=== PATIENT | male | born 1955 | race Caucasian/White ===

== ENCOUNTER 2024-05-10 09:07 | Inpatient (IN) | payer OTHER ==
[~2024-05-10] VITALS: Ht 170.2 cm; Wt 76.3 kg
[2024-05-10 09:09] VITALS: BP_SYST 187; PULSE 75; RESP 18; TEMP 97.6; O2SAT 98
[2024-05-10] MEDS: MORPHINE 4 MG INJ. 4 MG/ML VIAL IVP ONE (09:38)
[2024-05-10] MEDS: ONDANSETRON HCL 4 MG/2 ML VIAL IVP ONE (09:38)
[2024-05-10 09:42] LABS: BASOPHILS % (AUTO) 0.3 % (0.0-2.0); EOSINOPHILS % (AUTO) 0.2 % (0.0-4.0); HEMATOCRIT 40.5 % (36-54); HEMOGLOBIN 13.2 g/dL (14.0-18.0); LYMPHOCYTES # (AUTO) 1.9 K/uL (1.0-5.5); LYMPHOCYTES % (AUTO) 18.8 % (20.5-51.5); MEAN CORPUSCULAR HEMOGLOBIN 29 pg (27-31); MEAN CORPUSCULAR HGB CONC 33 % (32-36); MEAN CORPUSCULAR VOLUME 88 fL (79.0-98.0); MONOCYTES # (AUTO) 0.9 K/uL (0.0-1.0); MONOCYTES % (AUTO) 9.4 % (1.7-9.3); NEUTROPHILS # (AUTO) 7.2 K/uL (1.8-7.7); NEUTROPHILS % (AUTO) 71.3 % (40.0-70.0); PLATELET COUNT (AUTO) 313 K/uL (130-430); RED BLOOD CELL COUNT(AUTO) 4.62 MIL/uL (4.2-6.2); RED CELL DISTRIBUTION WIDTH 14.4 % (9.0-15.0); WHITE BLOOD COUNT (AUTO) 10.1 K/uL (4.8-10.8)
[2024-05-10 10:01] LABS: ALANINE AMINOTRANSFERASE 11 U/L (12-78); ALBUMIN 3.4 g/dL (3.4-4.8); ANION GAP 11 (5-15); ASPARTATE AMINOTRANSFERASE 15 U/L (10-37); BILIRUBIN,DIRECT 0.2 mg/dL (0.0-0.3); CARBON DIOXIDE 29 mmol/L (23-29); CHLORIDE 97 mmol/L (98-107); CREATININE 0.91 mg/dL (0.55-1.30); GFR AFRICAN AMERICAN 106 mL/min (>90); GFR NON AFRICAN-AMERICAN 88 mL/min (>90); GLUCOSE 102 mg/dL (74-106); LIPASE 155 U/L (16-77); POTASSIUM 3.7 mmol/L (3.5-5.1); SODIUM SERUM 137 mmol/L (136-145); TOTAL BILIRUBIN 0.3 mg/dL (0.0-1.0); TOTAL PROTEIN, SERUM 7.4 g/dL (6.4-8.3); UREA NITROGEN, BLOOD 7 mg/dL (8-21)
[2024-05-10 11:12] LABS: BILIRUBIN,URINE NEGATIVE (NEGATIVE); BLOOD, URINE NEGATIVE (NEGATIVE); CLARITY/URINE CLEAR (CLEAR); COLOR,URINE YELLOW (YELLOW); GLUCOSE,URINE NEGATIVE (NEGATIVE); KETONES,URINE NEGATIVE (NEGATIVE); LEUKOCYTE ESTERASE ,URINE NEGATIVE (NEGATIVE); NITRITE, URINE NEGATIVE (NEGATIVE); PROTEIN URINE NEGATIVE (NEGATIVE); UROBILINOGEN,URINE 0.2 (0.2-1.0)
[2024-05-10] MEDS: hydrALAZINE HCL 20 MG/ML VIAL IVP ONE (11:21)
[2024-05-10 11:36] LABS: BARBITURATE, URINE NEGATIVE (NEG <=200); BENZODIAZEPINE, URINE NEGATIVE (NEG <=150); CANNABINOID, URINE NEGATIVE (NEG <=50); COCAINE, URINE NEGATIVE (NEG <=150); METHAMPHETAMINES SCREEN,URINE NEGATIVE (NEG <=500); OPIATE, URINE POSITIVE (NEG <=100); PHENCYCLIDINE SCREEN,URINE NEGATIVE (NEG <=25); UR TRICYCLIC ANTIDEPRESSANTS NEGATIVE (NEG <=300); URINE AMPHETAMINE NEGATIVE (NEG <=500); URINE METHADONE NEGATIVE (NEG <=200); URINE OXYCODONE SCREEN NEGATIVE (NEG <=100)
[2024-05-10] MEDS ORDERED: ENAL-75 PO (12:22)
[2024-05-10] MEDS ORDERED: ENAL-77 PO (12:22)
[2024-05-10] MEDS ORDERED: PANT40TA45 PO (12:22)
[2024-05-10 15:11] VITALS: BP_SYST 144; PULSE 80; RESP 17; O2SAT 98
[2024-05-10 15:25] VITALS: BP_SYST 144; PULSE 80; RESP 17; TEMP 98.2
[2024-05-10 19:00] VITALS: O2SAT 98
[2024-05-10 20:00] VITALS: BP_SYST 135; PULSE 78; RESP 18; TEMP 97.6; O2SAT 99
[2024-05-10] MEDS: MORPHINE 4 MG INJ. 4 MG/ML VIAL IVP PRN (21:04)
[2024-05-11] VITALS: BP_SYST 138; PULSE 85; RESP 18; TEMP 98.1; O2SAT 98
[2024-05-11 08:00] VITALS: BP_SYST 151; PULSE 69; RESP 18; TEMP 97.6; O2SAT 97
[2024-05-11 11:34] VITALS: BP_SYST 146; PULSE 69; RESP 14; TEMP 97.6; O2SAT 98
[2024-05-11 16:20] VITALS: BP_SYST 140; PULSE 67; RESP 15; TEMP 97.8; O2SAT 97
[2024-05-11] MEDS: GOLYTELY / COLYTE SOLUTION 4 LITERS PO ONE (17:47)
[2024-05-11] MEDS: LOSARTAN POTASSIUM 25 MG TABLET PO SCH (18:15)
[2024-05-11] MEDS: LOSARTAN POTASSIUM 25 MG TABLET ONE (18:46)
[2024-05-11 19:32] VITALS: BP_SYST 151; PULSE 71; RESP 20; TEMP 97.6; O2SAT 20; O2SAT 98
[2024-05-12] VITALS (8 sets, daily range): BP systolic 143–169; PULSE 69–77; RESP 16–20; TEMP 96.8–98.9; O2SAT 97–98
[2024-05-12] MEDS: fentaNYL CITRATE/PF 100 MCG/2 ML AMP ONE (08:26)
[2024-05-12] MEDS: MIDAZOLAM HCL 5 MG/5 ML VIAL ONE (08:27)
[2024-05-12] MEDS: SIMETHICONE 40 MG/0.6 ML ML ONE (09:42)
[2024-05-12] MEDS: SIMETHICONE 80 MG TAB.CHEW PO PRN (13:15)
[2024-05-12] MEDS: PANTOPRAZOLE SODIUM 40 MG/VIAL (PROTONIX) IVP ONE (13:31)
[2024-05-12] MEDS: MORPHINE 4 MG INJ. 4 MG/ML VIAL IVP ONE (13:31)
[2024-05-13] VITALS: BP_SYST 151; PULSE 82; RESP 18; TEMP 97.9; O2SAT 97
[2024-05-13 07:50] VITALS: BP_SYST 169; PULSE 81; RESP 18; TEMP 97.6; O2SAT 99
[2024-05-13] MEDS: PANTOPRAZOLE SODIUM 40 MG/VIAL (PROTONIX) IVP SCH (10:31)
[2024-05-13 12:53] VITALS: BP_SYST 157; PULSE 67; RESP 18; TEMP 97.1; O2SAT 99
[2024-05-13 16:15] VITALS: BP_SYST 171; PULSE 74; RESP 16; TEMP 98.4; O2SAT 98
[2024-05-13] MEDS: cloNIDine HCL 0.2 MG TABLET PO PRN (16:38)
[2024-05-13 20:00] VITALS: BP_SYST 155; PULSE 59; RESP 20; TEMP 98.4; O2SAT 96
[2024-05-14] VITALS (7 sets, daily range): BP systolic 145–179; PULSE 60–75; RESP 15–20; TEMP 97.2–98.6; O2SAT 96–98
[2024-05-14] MEDS: SENNOSIDES/DOCUSATE SODIUM 1 TAB TABLET(SENOKOT-S) PO SCH (00:04)
[2024-05-14 08:23] LABS: BASOPHILS % (AUTO) 0.4 % (0.0-2.0); EOSINOPHILS # (AUTO) 0.1 K/uL (0.0-0.4); EOSINOPHILS % (AUTO) 1.1 % (0.0-4.0); HEMATOCRIT 37.8 % (36-54); HEMOGLOBIN 12.4 g/dL (14.0-18.0); LYMPHOCYTES % (AUTO) 29.3 % (20.5-51.5); MEAN CORPUSCULAR HEMOGLOBIN 29 pg (27-31); MEAN CORPUSCULAR HGB CONC 33 % (32-36); MEAN CORPUSCULAR VOLUME 88 fL (79.0-98.0); MONOCYTES # (AUTO) 0.7 K/uL (0.0-1.0); MONOCYTES % (AUTO) 10.6 % (1.7-9.3); NEUTROPHILS # (AUTO) 4.1 K/uL (1.8-7.7); NEUTROPHILS % (AUTO) 58.6 % (40.0-70.0); PLATELET COUNT (AUTO) 308 K/uL (130-430); RED BLOOD CELL COUNT(AUTO) 4.31 MIL/uL (4.2-6.2); RED CELL DISTRIBUTION WIDTH 14.3 % (9.0-15.0); WHITE BLOOD COUNT (AUTO) 6.9 K/uL (4.8-10.8)
[2024-05-14 08:33] LABS: CALCIUM 8.6 mg/dL (8.4-11.0); CREATININE 0.89 mg/dL (0.55-1.30); POTASSIUM 3.4 mmol/L (3.5-5.1)
[2024-05-14 16:57] LABS: BILIRUBIN,URINE NEGATIVE (NEGATIVE); BLOOD, URINE NEGATIVE (NEGATIVE); CLARITY/URINE CLEAR (CLEAR); GLUCOSE,URINE NEGATIVE (NEGATIVE); KETONES,URINE NEGATIVE (NEGATIVE); LEUKOCYTE ESTERASE ,URINE NEGATIVE (NEGATIVE); NITRITE, URINE NEGATIVE (NEGATIVE); PH,URINE 6.5 (5.0-8.0); PROTEIN URINE NEGATIVE (NEGATIVE); UROBILINOGEN,URINE 0.2 (0.2-1.0)
[2024-05-14 17:02] LABS: COLOR,URINE STRAW (YELLOW)
[2024-05-14] MEDS: D5/0.45 NS 1,000 ML IV SCH (23:41)
[2024-05-15 00:24] VITALS: BP_SYST 153; PULSE 64; RESP 18; TEMP 97.5; O2SAT 98
[2024-05-15 07:01] LABS: PROTHROMBIN TIME 10.8 SECS (9.5-12.5)
[2024-05-15 07:25] VITALS: O2SAT 97
[2024-05-15 08:00] VITALS: BP_SYST 166; PULSE 60; RESP 16; TEMP 98.1; O2SAT 98
[2024-05-15 09:12] LABS: BASOPHILS # (AUTO) 0.1 K/uL (0.0-0.2); EOSINOPHILS # (AUTO) 0.1 K/uL (0.0-0.4); EOSINOPHILS % (AUTO) 1.3 % (0.0-4.0); HEMATOCRIT 36.2 % (36-54); HEMOGLOBIN 11.9 g/dL (14.0-18.0); LYMPHOCYTES # (AUTO) 1.7 K/uL (1.0-5.5); LYMPHOCYTES % (AUTO) 25.6 % (20.5-51.5); MEAN CORPUSCULAR HEMOGLOBIN 29 pg (27-31); MEAN CORPUSCULAR HGB CONC 33 % (32-36); MEAN CORPUSCULAR VOLUME 88 fL (79.0-98.0); MONOCYTES # (AUTO) 0.9 K/uL (0.0-1.0); MONOCYTES % (AUTO) 13.8 % (1.7-9.3); NEUTROPHILS # (AUTO) 3.8 K/uL (1.8-7.7); NEUTROPHILS % (AUTO) 58.3 % (40.0-70.0); PLATELET COUNT (AUTO) 315 K/uL (130-430); RED BLOOD CELL COUNT(AUTO) 4.12 MIL/uL (4.2-6.2); RED CELL DISTRIBUTION WIDTH 14.4 % (9.0-15.0); WHITE BLOOD COUNT (AUTO) 6.6 K/uL (4.8-10.8)
[2024-05-15 10:15] LABS: ALBUMIN 2.7 g/dL (3.4-4.8); CALCIUM 8.5 mg/dL (8.4-11.0); CREATININE 0.83 mg/dL (0.55-1.30); POTASSIUM 3.6 mmol/L (3.5-5.1); TOTAL BILIRUBIN 0.3 mg/dL (0.0-1.0); TOTAL PROTEIN, SERUM 6.2 g/dL (6.4-8.3)
[2024-05-15 12:08] VITALS: BP_SYST 163; PULSE 63; RESP 17; TEMP 98.2; O2SAT 98
[2024-05-15] MEDS ORDERED: hydrALAZINE HCL 20 MG/ML VIAL IVP PRN (12:45)
[2024-05-15] MEDS ORDERED: metroNIDAZOLE 500 mg/NS 100 mL IVPB IV ONE (15:15)
[2024-05-15] MEDS ORDERED: ROCURONIUM BROMIDE 10 MG/ML (ZEMURON) ONE (15:15)
[2024-05-15] MEDS ORDERED: GLYCOPYRROLATE 0.2 MG/ML VIAL ONE (15:15)
[2024-05-15] MEDS ORDERED: LR 1,000 ML IV.SOLN IV ONE (15:15)
[2024-05-15] MEDS ORDERED: WATER FOR IRRIGATION,STERILE 1,000 ML IRRIG.SOLN IR ONE (15:15)
[2024-05-15] MEDS ORDERED: LIDOCAINE MPF 2% 20 MG/1 ML, 5 ML VIAL INH ONE (15:15)
[2024-05-15] MEDS ORDERED: NS IRRIG SOLN 1000 ML IR ONE (15:15)
[2024-05-15] MEDS ORDERED: PROPOFOL 200MG/ 20ML VIAL (DIPRIVAN) IV ONE (15:15)
[2024-05-15] MEDS ORDERED: ONDANSETRON HCL 4 MG/2 ML VIAL ONE (15:15)
[2024-05-15] MEDS ORDERED: SEVOFLURANE 15 MIN GAS INH ONE (15:15)
[2024-05-15] MEDS ORDERED: ceFAZolin SODIUM 2 GM VIAL ONE (15:15)
[2024-05-15] MEDS ORDERED: NEOSTIGMINE METHYLSULFATE 1 MG/ML, 10 ML VIAL ONE (15:15)
[2024-05-15] MEDS ORDERED: METOCLOPRAMIDE HCL 10 MG/2 ML VIAL ONE (15:15)
[2024-05-15] MEDS: fentaNYL CITRATE/PF 100 MCG/2 ML AMP ONE (15:27)
[2024-05-15] MEDS: MIDAZOLAM HCL 2 MG/2 ML VIAL (VERSED) ONE (15:27)
[2024-05-15] MEDS: BUPIVACAINE LIPOSOME/PF 266 MG/20 ML VIAL INFIL ONE (15:32)
[2024-05-15] MEDS ORDERED: ONDANSETRON HCL 4 MG/2 ML VIAL IVP PRN (17:30)
[2024-05-15] MEDS ORDERED: NALOXONE HCL 0.4 MG/ML AMP (NARCAN) IVP PRN ×3 (17:30)
[2024-05-15] MEDS ORDERED: METOCLOPRAMIDE HCL 10 MG/2 ML VIAL IVP PRN (17:30)
[2024-05-15] MEDS ORDERED: ePHEDrine sulfate 50 MG/ML VIAL IVP PRN (17:30)
[2024-05-15] MEDS ORDERED: HYDROmorphone 1 MG/ML INJ. CARTRIDGE IVP PRN (17:30)
[2024-05-15] MEDS: HYDROmorphone 1 MG/ML INJ. CARTRIDGE IVP PRN ×2 (17:52→18:03)
[2024-05-15] MEDS: LABETALOL 100 MG/ 20ML VIAL IVP PRN (18:02)
[2024-05-15] MEDS: HYDROmorphone 2 MG/ML VIAL ONE (18:03)
[2024-05-15] MEDS: LABETALOL HCL 20 MG/4 ML CARTRIDGE IVP ONE (18:08)
[2024-05-15 18:50] VITALS: BP_SYST 153; PULSE 63; RESP 17; TEMP 98.3; O2SAT 98
[2024-05-15 19:45] VITALS: O2SAT 97
[2024-05-15] MEDS: HYDROmorphone 1 MG/ML INJ. CARTRIDGE ONE (19:59)
[2024-05-16] VITALS (7 sets, daily range): BP systolic 145–157; PULSE 88–101; RESP 14–18; TEMP 98–99.3; O2SAT 94–98
[2024-05-16 12:17] LABS: BASOPHILS % (AUTO) 0.2 % (0.0-2.0); HEMATOCRIT 37.3 % (36-54); HEMOGLOBIN 12.1 g/dL (14.0-18.0); LYMPHOCYTES # (AUTO) 1.6 K/uL (1.0-5.5); MEAN CORPUSCULAR HEMOGLOBIN 28 pg (27-31); MEAN CORPUSCULAR HGB CONC 32 % (32-36); MEAN CORPUSCULAR VOLUME 87 fL (79.0-98.0); MONOCYTES % (AUTO) 7.7 % (1.7-9.3); NEUTROPHILS # (AUTO) 10.8 K/uL (1.8-7.7); NEUTROPHILS % (AUTO) 80.1 % (40.0-70.0); PLATELET COUNT (AUTO) 296 K/uL (130-430); RED CELL DISTRIBUTION WIDTH 14.5 % (9.0-15.0); WHITE BLOOD COUNT (AUTO) 13.5 K/uL (4.8-10.8)
[2024-05-16 12:34] LABS: CALCIUM 8.4 mg/dL (8.4-11.0); CREATININE 0.89 mg/dL (0.55-1.30); POTASSIUM 3.6 mmol/L (3.5-5.1)
[2024-05-16 17:33] LABS: BILIRUBIN,URINE NEGATIVE (NEGATIVE); BLOOD, URINE 3+ (NEGATIVE); CLARITY/URINE CLEAR (CLEAR); COLOR,URINE YELLOW (YELLOW); GLUCOSE,URINE NEGATIVE (NEGATIVE); KETONES,URINE NEGATIVE (NEGATIVE); LEUKOCYTE ESTERASE ,URINE NEGATIVE (NEGATIVE); NITRITE, URINE NEGATIVE (NEGATIVE); PROTEIN URINE NEGATIVE (NEGATIVE); UROBILINOGEN,URINE 0.2 (0.2-1.0)
[2024-05-16 18:20] LABS: BACTERIA,URINE FEW /HPF (None Seen); MUCUS,URINE None Seen /LPF (None Seen); RBC,URINE 20-50 /HPF (0-3); WBC,URINE 0-3 /HPF (0-3)
[2024-05-16] MEDS: LISINOPRIL 10 MG TABLET (PRINIVIL) PO ONE (20:51)
[2024-05-17] VITALS (7 sets, daily range): BP systolic 130–155; PULSE 80–101; RESP 16–18; TEMP 98.9–99.9; O2SAT 95–99
[2024-05-17 05:11] LABS: BASOPHILS % (AUTO) 0.3 % (0.0-2.0); EOSINOPHILS # (AUTO) 0.1 K/uL (0.0-0.4); EOSINOPHILS % (AUTO) 0.5 % (0.0-4.0); HEMOGLOBIN 11.1 g/dL (14.0-18.0); LYMPHOCYTES # (AUTO) 1.7 K/uL (1.0-5.5); LYMPHOCYTES % (AUTO) 14.3 % (20.5-51.5); MEAN CORPUSCULAR HEMOGLOBIN 28 pg (27-31); MEAN CORPUSCULAR HGB CONC 33 % (32-36); MEAN CORPUSCULAR VOLUME 87 fL (79.0-98.0); MONOCYTES # (AUTO) 1.2 K/uL (0.0-1.0); MONOCYTES % (AUTO) 9.9 % (1.7-9.3); NEUTROPHILS # (AUTO) 8.9 K/uL (1.8-7.7); PLATELET COUNT (AUTO) 273 K/uL (130-430); RED BLOOD CELL COUNT(AUTO) 3.89 MIL/uL (4.2-6.2); RED CELL DISTRIBUTION WIDTH 14.9 % (9.0-15.0); WHITE BLOOD COUNT (AUTO) 11.8 K/uL (4.8-10.8)
[2024-05-17 05:38] LABS: CALCIUM 8.2 mg/dL (8.4-11.0); CREATININE 0.94 mg/dL (0.55-1.30); POTASSIUM 3.2 mmol/L (3.5-5.1)
[2024-05-17] MEDS ORDERED: ENALAPRIL MALEATE (VASOTEC) Non-Formular 10 MG TABLET PO SCH (09:00)
[2024-05-17] MEDS: ONDANSETRON HCL 4 MG/2 ML VIAL IVP PRN (16:05)
[2024-05-17] MEDS: DOCUSATE SODIUM 100 MG CAPSULE PO SCH (20:31)
[2024-05-17] MEDS: POTASSIUM CHLORIDE 20 MEQ TABLET.ER PO ONE (20:31)
[2024-05-18] VITALS: BP_SYST 131; PULSE 72; RESP 18; TEMP 98.4
[2024-05-18 06:25] LABS: BASOPHILS % (AUTO) 0.2 % (0.0-2.0); EOSINOPHILS # (AUTO) 0.2 K/uL (0.0-0.4); EOSINOPHILS % (AUTO) 1.7 % (0.0-4.0); HEMATOCRIT 36.7 % (36-54); HEMOGLOBIN 12.1 g/dL (14.0-18.0); LYMPHOCYTES # (AUTO) 1.6 K/uL (1.0-5.5); LYMPHOCYTES % (AUTO) 16.3 % (20.5-51.5); MEAN CORPUSCULAR HEMOGLOBIN 29 pg (27-31); MEAN CORPUSCULAR HGB CONC 33 % (32-36); MEAN CORPUSCULAR VOLUME 88 fL (79.0-98.0); MONOCYTES # (AUTO) 0.9 K/uL (0.0-1.0); MONOCYTES % (AUTO) 8.8 % (1.7-9.3); PLATELET COUNT (AUTO) 301 K/uL (130-430); RED CELL DISTRIBUTION WIDTH 14.5 % (9.0-15.0); WHITE BLOOD COUNT (AUTO) 9.6 K/uL (4.8-10.8)
[2024-05-18 06:39] LABS: ALBUMIN 2.3 g/dL (3.4-4.8); CALCIUM 8.7 mg/dL (8.4-11.0); CREATININE 0.91 mg/dL (0.55-1.30); POTASSIUM 3.7 mmol/L (3.5-5.1); TOTAL BILIRUBIN 0.5 mg/dL (0.0-1.0); TOTAL PROTEIN, SERUM 6.3 g/dL (6.4-8.3)
[2024-05-18 08:00] VITALS: BP_SYST 135; PULSE 75; RESP 18; TEMP 98.2; O2SAT 98
[2024-05-18] MEDS: MINERAL OIL 30 ML UDC PO ONE (10:30)
[2024-05-18] MEDS: METOCLOPRAMIDE HCL 10 MG/2 ML VIAL IVP ONE (10:30)
[2024-05-18 12:00] VITALS: BP_SYST 129; PULSE 77; RESP 18; TEMP 98.5; O2SAT 98
[2024-05-18] MEDS: SUCRALFATE 1 GM TABLET PO SCH (15:31)
[2024-05-18] MEDS: D5/0.45 NS 1,000 ML IV SCH (15:31)
[2024-05-18 16:00] VITALS: BP_SYST 131; PULSE 77; RESP 18; TEMP 98.9; O2SAT 98
[2024-05-18] MEDS: METOCLOPRAMIDE HCL 10 MG/2 ML VIAL IVP SCH (18:39)
[2024-05-18 20:00] VITALS: O2SAT 95
[2024-05-18 20:16] VITALS: BP_SYST 151; PULSE 76; RESP 18; TEMP 98.6; O2SAT 96
[2024-05-18] MEDS: MEROPENEM 1 GM in NS 100 ML IV SCH (21:53)
[2024-05-19 00:46] VITALS: BP_SYST 141; PULSE 73; RESP 15; TEMP 98.1; O2SAT 97
[2024-05-19 08:36] VITALS: BP_SYST 123; PULSE 85; RESP 18; TEMP 98.4; O2SAT 98
[2024-05-19 09:51] VITALS: O2SAT 96
[2024-05-19 13:16] VITALS: BP_SYST 149; PULSE 77; RESP 18; TEMP 98.3; O2SAT 97
[2024-05-19 16:03] VITALS: BP_SYST 135; PULSE 76; RESP 18; TEMP 99.3; O2SAT 96
[2024-05-19 20:00] VITALS: BP_SYST 139; PULSE 79; RESP 18; TEMP 98.8; O2SAT 94
[2024-05-20 00:30] VITALS: BP_SYST 146; PULSE 71; RESP 18; TEMP 99.1; O2SAT 97
[2024-05-20 06:31] LABS: BASOPHILS % (AUTO) 0.6 % (0.0-2.0); EOSINOPHILS # (AUTO) 0.2 K/uL (0.0-0.4); EOSINOPHILS % (AUTO) 2.6 % (0.0-4.0); HEMATOCRIT 33.3 % (36-54); HEMOGLOBIN 11.4 g/dL (14.0-18.0); LYMPHOCYTES # (AUTO) 1.2 K/uL (1.0-5.5); LYMPHOCYTES % (AUTO) 19.4 % (20.5-51.5); MEAN CORPUSCULAR HEMOGLOBIN 29 pg (27-31); MEAN CORPUSCULAR HGB CONC 34 % (32-36); MEAN CORPUSCULAR VOLUME 86 fL (79.0-98.0); MONOCYTES # (AUTO) 0.6 K/uL (0.0-1.0); MONOCYTES % (AUTO) 10.6 % (1.7-9.3); NEUTROPHILS % (AUTO) 66.8 % (40.0-70.0); PLATELET COUNT (AUTO) 328 K/uL (130-430); RED BLOOD CELL COUNT(AUTO) 3.89 MIL/uL (4.2-6.2); RED CELL DISTRIBUTION WIDTH 14.9 % (9.0-15.0); WHITE BLOOD COUNT (AUTO) 5.9 K/uL (4.8-10.8)
[2024-05-20 07:11] LABS: ALBUMIN 2.1 g/dL (3.4-4.8); CALCIUM 8.2 mg/dL (8.4-11.0); CREATININE 0.84 mg/dL (0.55-1.30); POTASSIUM 3.1 mmol/L (3.5-5.1); TOTAL BILIRUBIN 0.6 mg/dL (0.0-1.0)
[2024-05-20 09:28] VITALS: BP_SYST 153; PULSE 82; RESP 19; TEMP 98.8; O2SAT 97
[2024-05-20] MEDS: KETOROLAC TROMETHAMINE 15 MG VIAL IVP PRN (09:39)
[2024-05-20 10:47] VITALS: O2SAT 96
[2024-05-20] MEDS: POTASSIUM CHLORIDE 20 MEQ TABLET.ER PO ONE (11:41)
[2024-05-20 18:48] VITALS: BP_SYST 142; PULSE 80; RESP 18; TEMP 97; O2SAT 96
[2024-05-20 20:00] VITALS: BP_SYST 155; PULSE 73; RESP 18; TEMP 98.1; O2SAT 95
[2024-05-20] MEDS: POTASSIUM CHLORIDE 20 MEQ TABLET.ER PO SCH (20:45)
[2024-05-20] MEDS: TEMAZEPAM 15 MG CAPSULE PO PRN (20:45)
[2024-05-20 21:49] LABS: TOTAL IRON BIND. CAPACITY 214 ug/dL (250-450)
[2024-05-21 00:30] VITALS: BP_SYST 145; PULSE 101; RESP 18; TEMP 98.8; O2SAT 98
[2024-05-21 05:50] LABS: BASOPHILS % (AUTO) 0.5 % (0.0-2.0); EOSINOPHILS # (AUTO) 0.3 K/uL (0.0-0.4); EOSINOPHILS % (AUTO) 4.1 % (0.0-4.0); HEMOGLOBIN 10.2 g/dL (14.0-18.0); LYMPHOCYTES # (AUTO) 1.3 K/uL (1.0-5.5); LYMPHOCYTES % (AUTO) 19.9 % (20.5-51.5); MEAN CORPUSCULAR HEMOGLOBIN 28 pg (27-31); MEAN CORPUSCULAR HGB CONC 33 % (32-36); MEAN CORPUSCULAR VOLUME 87 fL (79.0-98.0); MONOCYTES # (AUTO) 0.8 K/uL (0.0-1.0); MONOCYTES % (AUTO) 11.9 % (1.7-9.3); NEUTROPHILS # (AUTO) 4.2 K/uL (1.8-7.7); NEUTROPHILS % (AUTO) 63.6 % (40.0-70.0); PLATELET COUNT (AUTO) 288 K/uL (130-430); RED BLOOD CELL COUNT(AUTO) 3.58 MIL/uL (4.2-6.2); RED CELL DISTRIBUTION WIDTH 14.5 % (9.0-15.0); WHITE BLOOD COUNT (AUTO) 6.7 K/uL (4.8-10.8)
[2024-05-21 06:20] LABS: CALCIUM 8.1 mg/dL (8.4-11.0); CREATININE 0.8 mg/dL (0.55-1.30); POTASSIUM 3.5 mmol/L (3.5-5.1)
[2024-05-21 08:00] VITALS: BP_SYST 149; PULSE 83; RESP 16; TEMP 98.4; O2SAT 97
[2024-05-21 11:05] VITALS: BP_SYST 153; PULSE 83; RESP 16; TEMP 97; O2SAT 96
[2024-05-21] MEDS: NORMAL SALINE 5 ML DISP.SYRIN IVF SCH (13:12)
[2024-05-21] MEDS: ACETAMINOPHEN 500 MG TABLET PO PRN (14:23)
[2024-05-21 14:56] VITALS: BP_SYST 149; PULSE 94; RESP 16; TEMP 100.8; O2SAT 98
[2024-05-21 20:00] VITALS: BP_SYST 135; BP_SYST 150; PULSE 52; PULSE 71; RESP 18; TEMP 98.3; TEMP 98.9; O2SAT 96; O2SAT 99
[2024-05-22 08:00] VITALS: BP_SYST 141; PULSE 72; RESP 20; TEMP 97.7; O2SAT 96
[2024-05-22 12:28] VITALS: BP_SYST 132; PULSE 74
[2024-05-22 12:59] VITALS: BP_SYST 161; PULSE 49; RESP 14; TEMP 98.7; O2SAT 98
[2024-05-22 17:25] VITALS: BP_SYST 142; PULSE 55; RESP 14; TEMP 98.2; O2SAT 96
[2024-05-22 20:00] VITALS: BP_SYST 127; PULSE 47; RESP 16; TEMP 98.1; O2SAT 96
[2024-05-23 00:32] VITALS: BP_SYST 123; PULSE 69; RESP 18; TEMP 98.1; O2SAT 99
[2024-05-23 08:00] VITALS: BP_SYST 148; PULSE 45; RESP 12; TEMP 98.2; O2SAT 99
[2024-05-23 11:51] VITALS: BP_SYST 142; PULSE 54; RESP 18; TEMP 97.3; O2SAT 97
[2024-05-23] MEDS: ERTAPENEM SODIUM 0.5 GM in NS 50 ML IV SCH (13:31)
[2024-05-23 16:00] VITALS: BP_SYST 157; PULSE 47; RESP 12; TEMP 97.2; O2SAT 100
[2024-05-23 20:00] VITALS: BP_SYST 146; PULSE 45; RESP 18; TEMP 98.2; O2SAT 97
[2024-05-24 00:15] VITALS: BP_SYST 148; PULSE 73; RESP 18; TEMP 98.4; O2SAT 97
[2024-05-24 05:55] LABS: BILIRUBIN,URINE NEGATIVE (NEGATIVE); BLOOD, URINE NEGATIVE (NEGATIVE); CLARITY/URINE CLEAR (CLEAR); COLOR,URINE YELLOW (YELLOW); GLUCOSE,URINE NEGATIVE (NEGATIVE); KETONES,URINE NEGATIVE (NEGATIVE); LEUKOCYTE ESTERASE ,URINE NEGATIVE (NEGATIVE); NITRITE, URINE NEGATIVE (NEGATIVE); PROTEIN URINE NEGATIVE (NEGATIVE); UROBILINOGEN,URINE 0.2 (0.2-1.0)
[2024-05-24 07:04] LABS: BASOPHILS % (AUTO) 0.7 % (0.0-2.0); EOSINOPHILS # (AUTO) 0.3 K/uL (0.0-0.4); EOSINOPHILS % (AUTO) 5.6 % (0.0-4.0); HEMATOCRIT 33.3 % (36-54); HEMOGLOBIN 10.8 g/dL (14.0-18.0); LYMPHOCYTES # (AUTO) 1.7 K/uL (1.0-5.5); LYMPHOCYTES % (AUTO) 32.4 % (20.5-51.5); MEAN CORPUSCULAR HEMOGLOBIN 28 pg (27-31); MEAN CORPUSCULAR HGB CONC 32 % (32-36); MEAN CORPUSCULAR VOLUME 87 fL (79.0-98.0); MONOCYTES # (AUTO) 0.6 K/uL (0.0-1.0); MONOCYTES % (AUTO) 11.2 % (1.7-9.3); NEUTROPHILS # (AUTO) 2.6 K/uL (1.8-7.7); NEUTROPHILS % (AUTO) 50.1 % (40.0-70.0); PLATELET COUNT (AUTO) 415 K/uL (130-430); RED BLOOD CELL COUNT(AUTO) 3.83 MIL/uL (4.2-6.2); RED CELL DISTRIBUTION WIDTH 14.5 % (9.0-15.0); WHITE BLOOD COUNT (AUTO) 5.2 K/uL (4.8-10.8)
[2024-05-24 07:13] LABS: CALCIUM 8.5 mg/dL (8.4-11.0); CREATININE 0.74 mg/dL (0.55-1.30); POTASSIUM 3.8 mmol/L (3.5-5.1)
[2024-05-24 07:30] VITALS: BP_SYST 145; PULSE 65; RESP 17; TEMP 97.9
[2024-05-24 12:06] VITALS: BP_SYST 140; PULSE 62; RESP 17; TEMP 98.3; O2SAT 97
[2024-05-24] MEDS: ACETAMINOPHEN I.V. 1000 MG 100 ML IV ONE (13:27)
[2024-05-24] MEDS ORDERED: LR 1,000 ML IV.SOLN IV ONE (13:27)
[2024-05-24] MEDS ORDERED: ceFAZolin SODIUM 2 GM VIAL ONE (13:27)
[2024-05-24] MEDS: fentaNYL CITRATE/PF 100 MCG/2 ML AMP ONE (13:27)
[2024-05-24] MEDS ORDERED: LIDOCAINE/EPI 1% 1:100000 20 ML VIAL ONE (13:27)
[2024-05-24] MEDS: MIDAZOLAM HCL 2 MG/2 ML VIAL (VERSED) ONE (13:27)
[2024-05-24] MEDS ORDERED: NS IRRIG SOLN 1000 ML IR ONE (13:27)
[2024-05-24] MEDS ORDERED: HEPARIN SODIUM, PORCINE 10,000 UNITS/ 10 ML VIAL ONE (13:27)
[2024-05-24] MEDS ORDERED: ONDANSETRON HCL 4 MG/2 ML VIAL ONE (13:27)
[2024-05-24] MEDS ORDERED: PROPOFOL 200MG/ 20ML VIAL (DIPRIVAN) IV ONE (13:27)
[2024-05-24] MEDS: LR 1,000 ML IV ONE (13:45)
[2024-05-24] MEDS ORDERED: fentaNYL CITRATE/PF 100 MCG/2 ML AMP IVP PRN ×2 (13:45)
[2024-05-24] MEDS ORDERED: ONDANSETRON HCL 4 MG/2 ML VIAL IVP PRN (13:45)
[2024-05-24] MEDS ORDERED: HYDROmorphone 1 MG/ML INJ. CARTRIDGE IVP PRN (13:45)
[2024-05-24] MEDS ORDERED: NALOXONE HCL 0.4 MG/ML AMP (NARCAN) IVP PRN (13:45)
[2024-05-24 20:20] VITALS: BP_SYST 157; PULSE 49; RESP 20; TEMP 98.2; O2SAT 97
[2024-05-25 00:22] VITALS: BP_SYST 119; PULSE 50; RESP 18; TEMP 98.2; O2SAT 96
[2024-05-25 08:00] VITALS: BP_SYST 138; PULSE 69; RESP 16; TEMP 98.1; O2SAT 96
[2024-05-25 10:46] VITALS: O2SAT 96
[2024-05-25 11:01] VITALS: BP_SYST 149; PULSE 48; RESP 16; TEMP 96.9; O2SAT 96
[2024-05-25 15:00] VITALS: BP_SYST 138; PULSE 46; RESP 16; TEMP 96; O2SAT 97
[2024-05-25 18:07] VITALS: BP_SYST 138; PULSE 84; RESP 16; TEMP 96; O2SAT 97
== END 2024-05-25 18:40 | disposition home health service (06) | DRG 329 ==
LOC: SED 09:07 → SMU 12:23 → STU 05-22 23:45
PROVIDERS: ADMIT Family Medicine; ATTEND Family Medicine
PROC: 0DBH8ZX Excision of Cecum, Via Natural or Artificial Opening Endoscopic, Diagnostic (ICD-10-PCS; principal; 2024-05-12 08:30)
PROC: 0DBF4ZZ Excision of Right Large Intestine, Percutaneous Endoscopic Approach (ICD-10-PCS; 2024-05-15)
PROC: 0DBW4ZZ Excision of Peritoneum, Percutaneous Endoscopic Approach (ICD-10-PCS; 2024-05-15)
PROC: 02HV33Z Insertion of Infusion Device into Superior Vena Cava, Percutaneous Approach (ICD-10-PCS; 2024-05-24)
PROC: B5181ZA Fluoroscopy of Superior Vena Cava using Low Osmolar Contrast, Guidance (ICD-10-PCS; 2024-05-24)
PROC: B548ZZA Ultrasonography of Superior Vena Cava, Guidance (ICD-10-PCS; 2024-05-24)
DX: C18.0 Malignant neoplasm of cecum (principal); E43 Unspecified severe protein-calorie malnutrition; N39.0 Urinary tract infection, site not specified; K56.600 Partial intestinal obstruction, unspecified as to cause; K91.89 Other postprocedural complications and disorders of digestive system; K56.7 Ileus, unspecified; K57.30 Diverticulosis of large intestine without perforation or abscess without bleeding; K63.9 Disease of intestine, unspecified; K64.8 Other hemorrhoids; E87.6 Hypokalemia; I10 Essential (primary) hypertension; D63.8 Anemia in other chronic diseases classified elsewhere; Y83.8 Other surgical procedures as the cause of abnormal reaction of the patient, or of later complication, without mention of misadventure at the time of the procedure; Y82.8 Other medical devices associated with adverse incidents; B96.20 Unspecified Escherichia coli [E. coli] as the cause of diseases classified elsewhere; Z88.0 Allergy status to penicillin; Z68.26 Body mass index [BMI] 26.0-26.9, adult
CPT/HCPCS: 36415; 45380; 45381; 71045; 74018; 76000; 76705; 80048; 80053; 80076; 80307; 81000; 81001; 81003; 81015; 82272; 82378; 82948; 83540; 83550; 83690; 84484; 85025; 85610; 85730; 86886; 86900; 86901; 87081; 87086; 87186; 87230; 88305; 88307; 88309; 93005; 96374; 99285; C1788; C9290; G0378; G0482; J0131; J0360; J0696; J1170; J1335; J1644; J1885; J2185; J2250; J2270; J2405; J2470; J2704; J2710; J2765; J3010; J3465; J3490; J7060; J7120